=== PATIENT | female | born 1960 | race Caucasian/White ===

== ENCOUNTER → 2021-07-26 | Outpatient (CLI) | payer BC ==
--- NOTE | 2021-07-26 14:53 | US ---
EXAMINATION TYPE: US thyroid st tissue head/neck DATE OF EXAM: 07/26/2021 COMPARISON: NONE CLINICAL HISTORY: E04.9 THYROID GOITER. Patient denies palpable nodules. GLAND SIZE: Right Lobe: 4.9 x 1.6 x 1.4 cm Overall Parenchyma: heterogenous Left Lobe: 4.9 x 1.6 x 1.2 cm Overall Parenchyma: heterogeneous Isthmus Thickness: 0.2 cm NODULES RIGHT: # of nodules measured on right: 0 LEFT: # of nodules measured on left: 0 ISTHMUS: # of nodules measured in the isthmus: 0 Bilateral neck scanned: no evidence of lymphadenopathy. IMPRESSION: Nonspecific glandular heterogeneity.
== END | disposition home or self-care (01) ==
LOC: RADUSWWP 14:01
PROVIDERS: ATTEND Family Medicine
DX: E07.89 Other specified disorders of thyroid (principal)
CPT/HCPCS: 76536

== ENCOUNTER → 2021-08-09 | Outpatient (CLI) | payer BC ==
--- NOTE | 2021-08-09 14:00 | BD ---
EXAMINATION TYPE: Axial Bone Density DATE OF EXAM: 08/09/2021 COMPARISON: 10.04.2012 CLINICAL HISTORY: 60 years year old Female. ICD-10 CODE: Z78.0 Post menopausal w/o HRT Height: 69.3 Weight: 136 FRAX RISK QUESTIONS: NOTHING TO NOTE HERE RISK FACTORS HISTORY OF: Postmenopausal woman: YES, HYST AT AGE 51 YRS OLD Take estrogen and/or progesterone medications: JUST STARTED VAGINAL HORMONAL CREAM Hyperparathyroidism: NO Adrenal Insufficiency: NO MEDICATIONS: Thyroid Medications: YES, FOR ABOUT 15 YRS, SYNTHROID Additional Medications: REFLUX MEDS, OFF THE CALCIUM AND VIT D FOR QUITE A WHILE Additional History: THYROID AND REFLUX EXAM MEASUREMENTS: Bone mineral densitometry was performed using the [employer] System. Bone mineral density as measured about the Lumbar spine is: ----- L1-L4(G/cm2): 1.075 T Score Values are as follows: ----- L1: -1.3 ----- L2: -1.2 ----- L3: -0.9 ----- L4: -1.2 ----- L1-L4: -0.9 Bone mineral density has: Decreased -10.0% since study of: 10.04.2012 Bone mineral density about the R hip (g/cm2): 0.822 Bone mineral density about the L hip (g/cm2): 0.772 T Score values are as follows: -----R Neck: -1.3 -----L Neck: -1.7 -----R Total: -1.5 -----L Total: -1.9 Bone mineral density has: Decreased -13.9% since study of: 10.04.2012 FRAX%s: The graph provided illustrates a 12.9% chance for a major osteoporotic fx and a 1.5% chance f or the hips probability for fx in 10 years time. IMPRESSION: Osteopenia NOTE: T-SCORE=SD OF THE YOUNG ADULT MEAN.
== END | disposition home or self-care (01) ==
LOC: RADBDWWP 11:04
PROVIDERS: ATTEND Family Medicine
DX: M85.89 Other specified disorders of bone density and structure, multiple sites (principal); Z78.0 Asymptomatic menopausal state
CPT/HCPCS: 77080

== ENCOUNTER 2021-10-14 08:02 | Day surgery (SDC) | payer BC ==
[2021-10-12 09:19] VITALS: BMI 18.8
[~2021-10-14 08:02] MED LIST: LACTATED RINGERS 1,000 ML IV SCH
[2021-10-14] MEDS ORDERED: LIDOCAINE 1% (10MG/ML) FOR IV START INTRADERMA ONE (08:30)
[2021-10-14 08:33] VITALS: TEMP 98
[2021-10-14] MEDS ORDERED: LIDOCAINE 2% INJ 20 MG/ML (2 ML VIAL) ONE (09:11)
[2021-10-14] MEDS ORDERED: PROPOFOL 10 MG/ML 20 ML VIAL IV ONE (09:11)
--- NOTE | 2021-10-14 09:15 | P.GSHP ---
History of Present Illness H&P Date: 10/14/21 Chief Complaint: Screening colonoscopy, reflux This a 60-year-old female who presents today for screening colonoscopy. She is also had complaints of reflux and burping. She will undergo EGD. Past Medical History Additional Past Medical History / Comment(s): environmental allergies., difficulty swallowing History of Any Multi-Drug Resistant Organisms: None Reported Past Surgical History: Section, Hysterectomy, Orthopedic Surgery Additional Past Surgical History / Comment(s): MULTIPLE SURGERYS LEFT WRIST AND LEFT ELBOW ., CARPAL TUNNEL SURG., PLATE & HARDWARE LEFT FOREARM & HAND, cervical surgery with plate., CATARACTS Past Anesthesia/Blood Transfusion Reactions: Family History of Problems w/ Anesthesia, Postoperative Nausea & Vomiting (PONV) Additional Past Anesthesia/Blood Transfusion Reaction / Comment(s): MOTHER HAS PONV Past Psychological History: No Psychological Hx Reported Smoking Status: Never smoker Past Alcohol Use History: None Reported Past Drug Use History: None Reported - Past Family History Mother Family Medical History: Cancer Additional Family Medical History / Comment(s): BREAST CA Father Family Medical History: Cancer Additional Family Medical History / Comment(s): BLADDER CA Brother(s) Family Medical History: Cancer Additional Family Medical History / Comment(s): LYMPHOMA Medications and Allergies Home Medications Medication Instructions Recorded Confirmed Type Levothyroxine Sodium [Synthroid] 50 mcg PO DAILY 08/07/14 10/12/21 History Calcium Carbonate [Calcium] 600 mg PO DAILY 10/12/21 10/12/21 History Allergies Allergy/AdvReac Type Severity Reaction Status Date / Time latex Allergy Unknown ALLERGY Verified 10/12/21 08:57 TEST POSITIVE Surgical - Exam Vital Signs Temp Pulse Resp BP Pulse Ox 98 F 87 20 159/74 98 10/14/21 08:32 10/14/21 08:32 10/14/21 08:32 10/14/21 08:32 10/14/21 08:32 - General well developed, well nourished, no distress - Eyes PERRL - ENT normal pinna - Neck no masses - Respiratory normal expansion - Cardiovascular Rhythm: regular - Abdomen Abdomen: soft, non tender Assessment and Plan Assessment: Reflux and GERD. We'll perform EGD. We'll also perform screening colonoscopy
--- NOTE | 2021-10-14 09:37 | P.OP ---
Date of Procedure: 10/14/21 Preoperative Diagnosis: Screening colonoscopy GERD Postoperative Diagnosis: Antral gastritis Normal colon Procedure(s) Performed: EGD Colonoscopy Anesthesia: MAC Surgeon: Abraham Chacon Pathology: other (Antrum) Condition: stable Disposition: PACU Description of Procedure: The patient's placed on the endoscopy table in the lateral position. She received IV sedation. The gastro-/oropharynx passed in the esophagus and stomach. Scope was placed through the pylorus. The first and second portion of the duodenum appeared normal. Scope was then brought back the antrum this. Mildly inflamed. And a biopsy was performed. Scope was then retroflexed and the remainder of the stomach appeared normal. GE junction was at 40 cm. The distal esophagus appeared inflamed. This area was biopsied. The proximal esophagus appeared normal. The scope was then withdrawn for patient. Next digital rectal exam is performed. This revealed no abnormalities. Flexible colonoscope was then placed patient anus and passed throughout the entire colon. The ileocecal valve was visualized. The cecum, ascending and transverse colon appeared normal. The descending and sigmoid colon appeared normal. Scope was then brought back the rectum was normal. Scope withdrawn for patient.
[2021-10-14 09:47] VITALS: PULSE 90; RESP 16
[2021-10-14 09:54] VITALS: BP 118/60
== END 2021-10-14 10:31 | disposition home or self-care (01) ==
LOC: ORWHC2ENDO 08:02
PROVIDERS: ATTEND Surgery
DX: Z12.11 Encounter for screening for malignant neoplasm of colon (principal); K29.50 Unspecified chronic gastritis without bleeding; K21.00 Gastro-esophageal reflux disease with esophagitis, without bleeding; Z80.3 Family history of malignant neoplasm of breast; Z80.52 Family history of malignant neoplasm of bladder; Z80.7 Family history of other malignant neoplasms of lymphoid, hematopoietic and related tissues; Z79.890 Hormone replacement therapy; Z91.040 Latex allergy status
CPT/HCPCS: 88305; 45378; 43239; J2704; J2001

== ENCOUNTER 2022-02-02 07:52 | Inpatient (IN) | payer BC ==
[~2022-02-02 07:52] MED LIST changes: +ACETAMINOPHEN TAB 500 MG TAB PO PRN; +DEXAMETHASONE SOD PHOSPHATE 4 MG/ML 1 ML VIAL IV ONE; +HEPARIN SODIUM,PORCINE/PF 5,000 UNIT/0.5 ML SYRINGE SQ PRN; -LACTATED RINGERS 1,000 ML IV SCH; +ONDANSETRON 4 MG/2 ML VIAL IVP ONE
[2022-02-02] MEDS ORDERED: LIDOCAINE 1% (10MG/ML) FOR IV START INTRADERMA ONE (08:50)
[2022-02-02] MEDS: LACTATED RINGERS 1,000 ML IV SCH (08:50)
[2022-02-02] MEDS ORDERED: SCOPOLAMINE 1 MG/72 HR PATCH TRANSDERM ONE (09:21)
--- NOTE | 2022-02-02 09:50 | P.GSHP ---
History of Present Illness H&P Date: 02/02/22 Chief Complaint: GERD Is a 7-year-old female referred from Dr. Denver Vázquez. MThe patient has had long-standing problems with reflux esophagitis. The patient underwent recent EGD is found have evidence of esophagitis. Patient has been well informed on th e procedure of laparoscopic Antione fundoplication. The patient is aware the risk of the conversion to the open procedure, risk of injury to the stomach, liver and spleen. The patient is also a risk of recurrent GERD and dysphagia symptoms. The patient understands there is a postoperative diet of full liquids for 2 weeks after surgery. Past Medical History Past Medical History: Thyroid Disorder Additional Past Medical History / Comment(s): Environmental allergies, difficulty swallowing. History of Any Multi-Drug Resistant Organisms: None Reported Past Surgical History: Section, Hysterectomy, Orthopedic Surgery Additional Past Surgical History / Comment(s): MULTIPLE SURGERIES ON LEFT WRIST AND LEFT ELBOW, CARPAL TUNNEL SURGERY, PLATE & HARDWARE IN LEFT FOREARM AND HAND, cervical surgery with plate, CATARACTS, EGD, colonoscopy. Past Anesthesia/Blood Transfusion Reactions: Postoperative Nausea & Vomiting (PONV) Additional Past Anesthesia/Blood Transfusion Reaction / Comment(s): MOTHER HAS PONV. Difficult IV start. Past Psychological History: No Psychological Hx Reported Smoking Status: Never smoker Past Alcohol Use History: None Reported Past Drug Use History: None Reported - Past Family History Mother Family Medical History: Cancer Additional Family Medical History / Comment(s): BREAST CANCER. Father Family Medical History: Cancer Additional Family Medical History / Comment(s): BLADDER CANCER. Brother(s) Family Medical History: Cancer Additional Family Medical History / Comment(s): LYMPHOMA. Medications and Allergies Home Medications Medication Instructions Recorded Confirmed Type Levothyroxine Sodium [Synthroid] 50 mcg PO QAM 08/07/14 02/02/22 History Calcium Carbonate [Calcium] 600 mg PO DAILY 10/12/21 02/02/22 History Azelastine/Fluticasone 2 spray EA NOSTRIL BID 01/31/22 02/02/22 History [Azelastin-Flutic 137-50Mcg Spr] Allergies Allergy/AdvReac Type Severity Reaction Status Date / Time latex Allergy Unknown ALLERGY Verified 02/02/22 08:29 TEST POSITIVE Surgical - Exam Vital Signs Temp Pulse Resp BP Pulse Ox 97.4 F L 76 18 158/89 100 02/02/22 08:31 02/02/22 08:31 02/02/22 08:31 02/02/22 08:31 02/02/22 08:31 - General well developed, well nourished, no distress - Eyes PERRL - ENT normal pinna - Neck no masses - Respiratory normal expansion - Cardiovascular Rhythm: regular - Abdomen Abdomen: soft, non tender Assessment and Plan Assessment: GERD. We'll perform laparoscopic Antione fundal plication.
[2022-02-02] MEDS ORDERED: ROCURONIUM 10 MG/ML (5 ML VIAL) IV ONE (10:10)
[2022-02-02] MEDS ORDERED: fentaNYL (PF) 50 MCG/ML 2 ML AMP ONE (10:10)
[2022-02-02] MEDS ORDERED: SUCCINYLCHOLINE CHLORIDE 200 MG/10 ML VIAL IV ONE (10:10)
[2022-02-02] MEDS ORDERED: NEOSTIGMINE 1 MG/ML 10 ML VIAL ONE (10:10)
[2022-02-02] MEDS ORDERED: GLYCOPYRROLATE 0.2 MG/ML 2 ML VIAL ONE (10:10)
[2022-02-02] MEDS ORDERED: PROPOFOL 10 MG/ML 20 ML VIAL IV ONE (10:10)
[2022-02-02] MEDS ORDERED: LIDOCAINE 2% INJ 20 MG/ML (2 ML VIAL) ONE (10:10)
[2022-02-02] MEDS ORDERED: KETAMINE 10 MG/ML 20 ML VIAL ONE (10:10)
[2022-02-02] MEDS ORDERED: KETOROLAC 15 MG/ML 1 ML VIAL ONE (10:10)
[2022-02-02] MEDS ORDERED: MIDAZOLAM 2 MG/2 ML VIAL ONE (10:10)
[2022-02-02] MEDS ORDERED: BUPIVACAINE (PF) 0.25% 30 ML VIAL SQ ONE (10:48)
[2022-02-02] MEDS ORDERED: LACTATED RINGERS 1,000 ML IV ONE (11:15)
[2022-02-02] MEDS ORDERED: ONDANSETRON 4 MG/2 ML VIAL IVP PRN (11:44)
--- NOTE | 2022-02-02 11:44 | P.OP ---
Date of Procedure: 02/02/22 Preoperative Diagnosis: GERD Hiatal hernia Postoperative Diagnosis: Large hiatal hernia Procedure(s) Performed: Laparoscopic Antione fundal plication with mesh Anesthesia: YVETTE Surgeon: Abraham Chacon Estimated Blood Loss (ml): 5 Pathology: none sent Condition: stable Disposition: PACU Description of Procedure: The patient was placed on the operating table in the supine position. She received general anesthesia. She was then placed in dorsal lithotomy position. Her abdomen was prepped and draped in the usual sterile fashion. The skin incision sites were anesthetized with 1% local Xylocaine. The skin was incised in the left periumbilical area with an 11 scalpel. Using a 5 mm blade was trocar under direct visitation the peritoneal cavity was entered. And then insufflated. After adequate insufflation the laparoscope was placed back into the peritoneal cavity. Next a 5 mm trocar was placed in the right epigastric and then the right lateral position. Another 5 mm trochars placed in the left lateral position. Another 5 mm trocar placed in the left epigastric position. And the original left periumbilical trocar was exchanged for a 10 mm trocar. The left lateral lobe liver was retracted. The patient had a large hiatal hernia. Using the Harmonic scissors the crural defect was dissected in the Harmonic scissors were used to dissect the hiatal hernia sac. The fundus of the stomach was completely mobilized by using the Harmonic scissors to divide short gastric vessels. The stomach was reduced into the peritoneal cavity. The crura was dissected with the Harmonic scissors. And then the crural repair was performed using 2-0 Ethibond suture. The [place] bio A mesh was then placed over top of the repair and secured with 2-0 Ethibond suture. Next a 58-[place] bougie dilator was placed the patient's oral pharynx and into the esophagus into the stomach by the TECHNOLOGY SALES SPECIALIST. The fundoplication was then performed using 2-0 Ethibond suture. A 360 fundoplication was performed. At this point the dilator was withdrawn. The stomach and esophagus were inspected there is known to any injury to the stomach or esophagus. The abdomen was irrigated there is no bleeding seen. The trochars are withdrawn. Skin was closed interrupted 3-0 Monocryl suture. Dermabond was applied. Patient tolerated procedure well and was sent to recovery in stable condition.
[2022-02-02] MEDS: HYDROmorphone 0.5 MG/0.5 ML SYRINGE IVP PRN ×2 (12:58→13:15)
[2022-02-02] MEDS: D5-0.45% NACL WITH KCL 20MEQ/L 1,000 ML IV SCH ×2 (16:55→23:35)
[2022-02-02] MEDS: ACETAMINOPHEN TAB 325 MG TAB PO PRN (17:22)
[2022-02-02] MEDS ORDERED: NON FORMULARY DRUG (Azelastine/Fluticasone [Azelastin-Flutic 137-50mcg Spr] 23 GM Each) EA NOSTRIL SCH (21:00)
[2022-02-02] MEDS: AZELASTINE 137MCG/SPRAY EA NOSTRIL SCH (21:43)
[2022-02-02] MEDS: FLUTICASONE 50MCG/SPRAY NASAL 16GM EA NOSTRIL SCH (21:43)
[2022-02-03] MEDS: HYDROmorphone 0.5 MG/0.5 ML SYRINGE IVP PRN ×2 (02:20→09:27)
[2022-02-03] MEDS: ACETAMINOPHEN TAB 325 MG TAB PO PRN (02:20)
--- NOTE | 2022-02-03 03:29 | CONS ---
CONSULTATION HISTORY OF PRESENT ILLNESS: Medical consult status post EGD with the Antione procedure. Home medicines have been reordered including her Synthroid 50 mcg daily, Lovenox subcu, azelastine/Astepro 2 sprays each nostril daily, and Flonase. She is status post Antione procedure, medical consult. She is having no difficulty. PHYSICAL EXAMINATION: GENERAL: She looks her stated age. VITAL SIGNS: Blood pressure 130s over 70s, 99% on room air, pulse 71, respiratory rate 18. CARDIOVASCULAR: S1, S2. LUNGS: Clear. GI: Soft. HEMATOLOGY: Negative Homans. PSYCH: Fair mood and affect. Home medications reviewed and include Synthroid. Surgical history, family history are reviewed. She is medically stable at this time. Continue current treatment. MMODL / IJN: [id number] /
[2022-02-03] MEDS: LACTATED RINGERS 1,000 ML IV SCH (05:20)
[2022-02-03] MEDS: D5-0.45% NACL WITH KCL 20MEQ/L 1,000 ML IV SCH (05:55)
[2022-02-03] MEDS ORDERED: LEVOTHYROXINE 50 MCG TAB PO SCH (06:30)
[2022-02-03 07:45] VITALS: BP 133/80; PULSE 58; RESP 16; TEMP 98
[2022-02-03] MEDS ORDERED: ENOXAPARIN 40 MG/0.4 ML SYRINGE SQ SCH (09:00)
[2022-02-03] MEDS ORDERED: HYDROcodone/APAP 5-325MG 1 EACH TAB PO PRN (10:15)
[2022-02-03] MEDS: AZELASTINE 137MCG/SPRAY EA NOSTRIL SCH (10:16)
[2022-02-03] MEDS: FLUTICASONE 50MCG/SPRAY NASAL 16GM EA NOSTRIL SCH (10:16)
[2022-02-03 12:19] VITALS: BMI 17.8
--- NOTE | 2022-02-03 13:09 | P.DS ---
Providers Date of admission: 02/02/22 07:52 Expected date of discharge: 02/03/22 Attending physician: Abraham Perez Consults: 02/02/22 11:44 Consult Physician Routine Consulting Provider: Denver Pierre Consult Reason/Comments: Medical management Do you want consulting provider notified?: Yes Primary care physician: Denver Pierre Hospital Course: Discharge diagnosis 1. Large hiatal hernia status post laparoscopic Antione fundoplication with mesh Hospital course This is a 61-year-old female with a large hiatal hernia and she is status post laparoscopic Antione fundoplication with mesh. Patient tolerated surgery well. Her pain is controlled. She is tolerating diet. She's afebrile. She has been up and ambulating. Patient seen and examined with Dr. perez. Patient is stable for discharge. Please refer to chart for any further details. Physician Chief [employer] note has been reviewed by physician. Signing provider agrees with the documented findings, assessment, and plan of care. Patient Condition at Discharge: Stable Plan - Discharge Summary Discharge Rx Participant: No New Discharge Prescriptions: New Docusate [Colace] 100 mg PO BID #30 capsule HYDROcodone/APAP 5-325MG [[place] 5-325] 1 tab PO Q6HR PRN 3 Days #12 tab PRN Reason: Pain Continue Levothyroxine Sodium [Synthroid] 50 mcg PO QAM Calcium Carbonate [Calcium] 600 mg PO DAILY Azelastine/Fluticasone [Azelastin-Flutic 137-50Mcg Spr] 2 spray EA NOSTRIL BID Discharge Medication List Levothyroxine Sodium [Synthroid] 50 mcg PO QAM 08/07/14 [History] Calcium Carbonate [Calcium] 600 mg PO DAILY 10/12/21 [History] Azelastine/Fluticasone [Azelastin-Flutic 137-50Mcg Spr] 2 spray EA NOSTRIL BID 01/31/22 [History] Docusate [Colace] 100 mg PO BID #30 capsule 02/03/22 [Rx] HYDROcodone/APAP 5-325MG [[place] 5-325] 1 tab PO Q6HR PRN 3 Days #12 tab 02/03/22 [Rx] Follow up Appointment(s)/Referral(s): Abraham Perez MD [STAFF PHYSICIAN] - 1 Week Activity/Diet/Wound Care/Special Instructions: No driving while taking [place] No lifting over 10 pounds Shower daily. No soaking or tub baths for 2 weeks Very light activity until you are reevaluated at your follow up appointment with your surgeon NO straws or carbonated beverages Continue Full liquid diet until seen by surgeon Discharge Disposition: HOME SELF-CARE
== END 2022-02-03 15:19 | disposition home or self-care (01) | DRG 328 ==
LOC: 2ORMAIN 07:52 → 4SSUR 14:46
PROVIDERS: ADMIT Surgery; ATTEND Surgery
PROC: 0DV44ZZ Restriction of Esophagogastric Junction, Percutaneous Endoscopic Approach (ICD-10-PCS; principal; 2022-02-02 09:35)
DX: K21.00 Gastro-esophageal reflux disease with esophagitis, without bleeding (principal); K21.9 Gastro-esophageal reflux disease without esophagitis; Z79.890 Hormone replacement therapy; Z79.899 Other long term (current) drug therapy; Z91.040 Latex allergy status; Z28.310 Unvaccinated for COVID-19

== ENCOUNTER → 2024-07-08 | Outpatient (CLI) | payer BC ==
--- NOTE | 2024-07-08 12:36 | CT ---
EXAMINATION TYPE: CT chest wo con DATE OF EXAM: 07/08/2024 12:23 PM COMPARISON: None CLINICAL INDICATION: Female, 63 years old with history of J90 PLEURAL EFFUSION; PHH, PLEURAL EFFUSION TECHNIQUE: Multiple axial images were obtained through the chest. Sagittal and coronal reformats were created for review. MIP was performed on a separate workstation. Contrast used: mL of (None if empty) Oral contrast used: (None if empty) CT DLP: 112.50 mGycm, Automated exposure control for dose reduction was used. FINDINGS: LUNGS/ PLEURA: Trace right pleural effusion. There is some right lower lobe consolidation changes als o present. No left pleural effusion pneumothorax or focal consolidation. No right pneumothorax. AIRWAY: Patent and unremarkable. HEART: Size within normal limits. No significant coronary artery calcifications. MEDIASTINUM: No gross evidence of adenopathy. VASCULATURE: No aortic aneurysm. MUSCULOSKELETAL: No acute osseous abnormalities, fixation hardware in the cervical spine partially vi sualized. Visualized hardware appears intact. SOFT TISSUES/LYMPH NODES: Unremarkable. LOWER NECK: No significant findings. UPPER ABDOMEN: Simple appearing probable hepatic cyst left hepatic lobe. No follow-up recommended. Po stsurgical changes gastroesophageal junction. IMPRESSION: 1. No evidence for acute process. 2. Trace right pleural effusion. 3. Airspace opacities in the right lung base correlate for pneumonia there is atelectasis.. 4. Surgical changes gastroesophageal junction. Follow up recommendations for incidental pulmonary nodules, if there are any, are per [employer] [employer] or [place] [employer]. [email or web address]://radiopaedia.org/articles/zsoxqmvxay-orisgbg-[email or web address]-plsopa-[email or web address]-[email or web address]?lang=us [facility], , 07/08/2024 12:34 PM
== END | disposition home or self-care (01) ==
LOC: RADCTMAIN 11:54
PROVIDERS: ATTEND Family Medicine
DX: J90 Pleural effusion, not elsewhere classified (principal); R91.8 Other nonspecific abnormal finding of lung field; K22.89 Other specified disease of esophagus
CPT/HCPCS: 71250